=== PATIENT | female | born 1965 | race Two or more races ===

== ENCOUNTER → 2017-07-09 | Outpatient (CLI) | payer BC ==
[2017-07-09 11:36] LABS: BASO % 0.5 % (0.0-1.0); EOS # 0.1 10^3/uL (0.0-0.50); HEMATOCRIT 40.4 % (36.0-47.0); HEMOGLOBIN 13.4 g/dl (12.0-15.5); IMMATURE GRANULOCYTE % 0.2 % (0-3.0); LYMPH # 2.2 10^3/uL (1.5-4.5); LYMPH % 38.4 % (24.0-44.0); MEAN CORPUSCULAR HEMOGLOBIN 29.1 pg (27.0-33.0); MEAN CORPUSCULAR HGB CONC 33.2 g/dl (32.0-36.5); MEAN CORPUSCULAR VOLUME 87.8 fl (80.0-96.0); MONO # 0.4 10^3/uL (0.0-0.8); MONO % 7.7 % (0.0-5.0); NEUTROPHILS # 2.9 10^3/uL (1.8-7.7); NEUTROPHILS % 51.2 % (36.0-66.0); PLATELET COUNT, AUTOMATED 331 10^3/uL (150-450); RED CELL DISTRIBUTION WIDTH 12.9 % (11.5-14.5); WHITE BLOOD COUNT 5.6 10^3/uL (4.0-10.0)
[2017-07-09 12:01] LABS: TOTAL 25(OH) VITAMIN D 38.1 NG/ML (30.0-100.0)
[2017-07-09 12:15] LABS: ALBUMIN 3.9 GM/DL (3.2-5.2); ALKALINE PHOSPHATASE 111 U/L (45-117); ALT/SGPT 29 U/L (12-78); ANION GAP 7 MEQ/L (8-16); AST/SGOT 19 U/L (7-37); BILIRUBIN,TOTAL 0.5 MG/DL (0.2-1.0); BLOOD UREA NITROGEN 18 MG/DL (7-18); CALCIUM LEVEL 9.2 MG/DL (8.5-10.1); CARBON DIOXIDE LEVEL 28 MEQ/L (21-32); CHLORIDE LEVEL 107 MEQ/L (98-107); CHOLESTEROL LEVEL 196 MG/DL (<200); CREATININE FOR GFR 0.54 MG/DL (0.55-1.30); GLOMERULAR FILTRATION RATE > 60.0 (>51); GLUCOSE, FASTING 109 MG/DL (70-100); HDL CHOLESTEROL 56 MG/DL (>40); LDL CHOLESTEROL 115.6 MG/DL (<100); NON-HDL-C 140 MG/DL; POTASSIUM SERUM 4.1 MEQ/L (3.5-5.1); SODIUM LEVEL 142 MEQ/L (136-145); THYROXINE (T4) 8.3 UG/DL (4.5-12.0); TOTAL PROTEIN 7.8 GM/DL (6.4-8.2); TRIGLYCERIDES LEVEL 122 MG/DL (<150)
[2017-07-09 13:08] LABS: ESTIMATED AVERAGE GLUCOSE 148 MG/DL (60-110); HEMOGLOBIN A1c 6.8 %
== END ==
LOC: M LRY 09:48
DX: R73.9 Hyperglycemia, unspecified (principal); E03.9 Hypothyroidism, unspecified; E56.8 Deficiency of other vitamins; Z79.899 Other long term (current) drug therapy
CPT/HCPCS: 84443

== ENCOUNTER → 2017-07-21 | Outpatient (CLI) | payer BC | LOC: M LRY 11:28 | DX: M25.561 Pain in right knee (principal) ==

== ENCOUNTER → 2018-03-09 | Outpatient (CLI) | payer BC ==
--- NOTE | 2018-03-09 14:42 | REP ---
LEFT WRIST, FOUR VIEWS: HISTORY: Injury. There is a nondisplaced fracture of the distal radius. There is no dislocation. The joint spaces are normal in appearance. IMPRESSION: Nondisplaced fracture of the distal radius. Electronically Signed by Lc Brennan MD 03/09/2018 02:43 P
== END ==
LOC: M LRY 14:09
PROVIDERS: ATTEND Physician Assistant
DX: S52.502A Unspecified fracture of the lower end of left radius, initial encounter for closed fracture (principal); X58.XXXA Exposure to other specified factors, initial encounter; Y92.9 Unspecified place or not applicable; Y93.9 Activity, unspecified; Y99.9 Unspecified external cause status

== ENCOUNTER → 2018-04-11 | Outpatient (CLI) | payer BC ==
[2018-04-11 18:03] LABS: HEMATOCRIT 42.2 % (36.0-47.0); HEMOGLOBIN 13.5 g/dl (12.0-15.5); MEAN CORPUSCULAR HEMOGLOBIN 28.7 pg (27.0-33.0); MEAN CORPUSCULAR VOLUME 89.6 fl (80.0-96.0); PLATELET COUNT, AUTOMATED 325 10^3/uL (150-450); RED BLOOD COUNT 4.71 10^6/uL (4.00-5.40); WHITE BLOOD COUNT 5.8 10^3/uL (4.0-10.0)
[2018-04-11 18:04] LABS: ALBUMIN 3.8 GM/DL (3.2-5.2); ALT/SGPT 36 U/L (12-78); BILIRUBIN,TOTAL 0.3 MG/DL (0.2-1.0); BLOOD UREA NITROGEN 12 MG/DL (7-18); CALCIUM LEVEL 9.1 MG/DL (8.5-10.1); CARBON DIOXIDE LEVEL 25 MEQ/L (21-32); CHLORIDE LEVEL 106 MEQ/L (98-107); CHOLESTEROL LEVEL 195 MG/DL (<200); GLOMERULAR FILTRATION RATE > 60.0 (>51); GLUCOSE, FASTING 146 MG/DL (70-100); HDL CHOLESTEROL 60 MG/DL (>40); LDL CHOLESTEROL 106 MG/DL (<100); NON-HDL-C 135 MG/DL; POTASSIUM SERUM 4.1 MEQ/L (3.5-5.1); SODIUM LEVEL 141 MEQ/L (136-145); TOTAL PROTEIN 7.5 GM/DL (6.4-8.2); TRIGLYCERIDES LEVEL 144 MG/DL (<150)
== END ==
LOC: M LRY 10:27
PROVIDERS: ATTEND Physician Assistant Medical
DX: I10 Essential (primary) hypertension (principal); R53.83 Other fatigue; E03.9 Hypothyroidism, unspecified; E78.2 Mixed hyperlipidemia; E11.9 Type 2 diabetes mellitus without complications

== ENCOUNTER 2018-07-29 05:36 | Day surgery (SDC) | payer BC ==
[~2018-07-29] VITALS: Ht 154.9 cm; Wt 81.2 kg
[~2018-07-29 05:36] MED LIST: ASPI81CH33 PO; FLON1SPR; LEVO137T2 PO; MULTCAP PO; VITA400T15 PO
[2018-07-29] MEDS ORDERED: VASOPRESSIN INJ 20 UNITS/ML VIAL As Ordered ONE (05:59)
[2018-07-29] MEDS ORDERED: ACETAMINOPHEN *IV* 1,000 MG IV ONE ×2 (06:00)
[2018-07-29] MEDS ORDERED: LR 1,000 ML IV ONE (06:00)
[2018-07-29] MEDS ORDERED: LIDOCAINE W/EPINEPHRINE 1% 20ML VIAL As Ordered ONE (06:00)
[2018-07-29 06:34] LABS: HEMATOCRIT 43.7 % (36.0-47.0); HEMOGLOBIN 14.3 g/dl (12.0-15.5); MEAN CORPUSCULAR HEMOGLOBIN 29.9 pg (27.0-33.0); MEAN CORPUSCULAR HGB CONC 32.7 g/dl (32.0-36.5); MEAN CORPUSCULAR VOLUME 91.4 fl (80.0-96.0); PLATELET COUNT, AUTOMATED 316 10^3/uL (150-450); RED BLOOD COUNT 4.78 10^6/uL (4.00-5.40); WHITE BLOOD COUNT 6.2 10^3/uL (4.0-10.0)
[2018-07-29 06:45] LABS: BLOOD UREA NITROGEN 11 MG/DL (7-18); CALCIUM LEVEL 9.6 MG/DL (8.5-10.1); CARBON DIOXIDE LEVEL 29 MEQ/L (21-32); CHLORIDE LEVEL 106 MEQ/L (98-107); CREATININE FOR GFR 0.65 MG/DL (0.55-1.30); GLOMERULAR FILTRATION RATE > 60.0 (>51); GLUCOSE, FASTING 130 MG/DL (70-100); POTASSIUM SERUM 3.8 MEQ/L (3.5-5.1); SODIUM LEVEL 141 MEQ/L (136-145)
[2018-07-29] MEDS ORDERED: PROPOFOL 200 MG/20 ML VIAL As Ordered ONE (07:14)
[2018-07-29] MEDS ORDERED: LIDOCAINE 2% INJ 100 MG/5 ML SDV (FOR ANES.) As Ordered ONE (07:14)
[2018-07-29] MEDS ORDERED: dexameTHASONE 4 MG/ML 1ML VIAL (J1100) As Ordered ONE (07:14)
[2018-07-29] MEDS ORDERED: fentaNYL 250 MCG/5 ML INJECTION (J3010) As Ordered ONE (07:14)
[2018-07-29] MEDS ORDERED: MIDAZOLAM INJ 2 MG/2 ML VIAL (J2250) As Ordered ONE (07:14)
[2018-07-29] MEDS ORDERED: ACETAMINOPHEN 1000MG 100ML IV BTL (OFIRMEV) (J0131 PER 10MG) As Ordered ONE (07:36)
[2018-07-29] MEDS ORDERED: ePHEDrine SULFATE 25 MG/5 ML(5MG/ML) SYRINGE As Ordered ONE (07:45)
[2018-07-29] MEDS ORDERED: ESTROGENS VAGINAL CREAM 30GM As Ordered ONE (09:20)
[2018-07-29] MEDS ORDERED: fentaNYL 100 MCG/2 ML INJECTION (J3010) As Ordered ONE (10:01)
[2018-07-29] MEDS: fentaNYL 100 MCG/2 ML INJECTION (J3010) IV PRN ×4 (10:03→10:25)
[2018-07-29] MEDS ORDERED: PERCOCET 5MG/325MG TAB As Ordered ONE (10:13)
[2018-07-29] MEDS ORDERED: METOCLOPRAMIDE INJ 10MG/2ML VIAL (J2765) IV PRN (10:30)
[2018-07-29] MEDS ORDERED: LR 1,000 ML IV SCH (10:30)
[2018-07-29] MEDS ORDERED: ONDANSETRON 4MG/2ML VIAL (J2405) IV PRN (10:30)
[2018-07-29] MEDS ORDERED: PERCOCET 5MG/325MG TAB PO PRN ×2 (10:30)
[2018-07-29] MEDS ORDERED: MORPHINE 10 MG/ML 1ML VIAL (J2270) As Ordered ONE (10:33)
[2018-07-29] MEDS: MORPHINE 10 MG/ML 1ML VIAL (J2270) IV PRN ×2 (10:37→10:53)
[2018-07-29] MEDS ORDERED: IBUP80TA PO (10:49)
[2018-07-29] MEDS ORDERED: PERC5TAB12 PO (10:49)
[2018-07-29 11:45] VITALS: BP 114/68
[2018-07-29 12:12] VITALS: BP 113/66
[2018-07-29] MEDS: SIMETHICONE 80 MG CHEW TAB PO SCH ×2 (12:22→18:31)
[2018-07-29] MEDS: LR 1,000 ML IV SCH ×2 (12:23→18:15)
[2018-07-29 13:17] VITALS: BP 109/67
[2018-07-29 14:36] VITALS: BP 110/65
[2018-07-29] MEDS: IBUPROFEN 800 MG TAB PO SCH ×2 (15:11→21:38)
[2018-07-29 15:17] VITALS: BP 113/67
[2018-07-29] MEDS ORDERED: LEVOTHYROXINE 137MCG TABLET (0.137MG) PO SCH (21:00)
[2018-07-29 22:00] VITALS: BP 101/48
[2018-07-30] MEDS: SIMETHICONE 80 MG CHEW TAB PO SCH ×3 (00:11→11:44)
[2018-07-30 02:00] VITALS: BP 112/63
[2018-07-30] MEDS: IBUPROFEN 800 MG TAB PO SCH ×3 (02:51→15:12)
[2018-07-30 06:00] VITALS: BP 108/63
--- NOTE | 2018-07-30 08:22 | RO ---
DATE OF PROCEDURE: 07/29/2018 Merlyn is a 53-year-old female with symptomatic vaginal vault prolapse post hysterectomy. She has also complained of pelvic pain and pressure, urinary incontinence. After counseling in the office, a decision was made to proceed with an anterior-posterior vaginal repair, sacrospinous vault suspension, cystoscopy. PREOPERATIVE DIAGNOSES: 1. 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 2. Pelvic pain. 3. Urinary incontinence. POSTOPERATIVE DIAGNOSES: 1. 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 2. Pelvic pain. 3. Urinary incontinence. PROCEDURE: 1. Anterior-posterior vaginal repair. 2. Bilateral sacrospinous vaginal vault suspension and perineorrhaphy. ANESTHESIA: General. SURGEON: Dr. Ryan Cunningham COMPLICATIONS: None. ESTIMATED BLOOD LOSS: 200 mL. FINDING: Complete vaginal vault prolapse with significant cystocele and rectocele. DESCRIPTION OF PROCEDURE: Visiting with the patient in the holding area and reaffirming informed consent, patient was taken to the operating room where general anesthetic was found to be adequate. She was then draped and prepped usual sterile fashion in the dorsal lithotomy position. At this point, a Mensah catheter was placed in the bladder for drainage. The apex of the vagina was identified. Two Allis were placed at the apex of the vagina, then one other Allis placed approximately 2-3 cm below the urethral meatus at the bladder neck. At this point, diluted Pitressin solution was used in a midline fashion and the vaginal mucosa was infiltrated with the Pitressin solution, approximately 20 mL were used. At this point, a midline incision was made with a 5 blade, then the vaginal mucosa was then dissected up off the bladder. The bladder wall was pushed back to its anatomical position, and the cystocele was then imbricated using a #2-0 Vicryl suture. At this point the sacrospinous ligament on the right was palpated medially to feel the sacrospinous ligament. An anchor with a #2-0 Prolene suture was passed through and placed at the sacrospinous ligament. The opposite side was done in a similar fashion. These sutures were held with two hemostats for future use. At this point, the cystocele, again, a second layer of imbrication was done. The vaginal mucosa was then trimmed, and the vaginal mucosa was closed in and a figure-of-8 fashion using #2-[address] the way up to the apex of the vagina. At this point, using a Butts needle through the Prolene sutures, the suture was sutured to the apex of the vagina on both sides creating a tiago system. Two interrupted #2-0 Vicryl sutures were placed over these sutures to assist in closure of the vaginal mucosa. At this point, the tiago system was used and the apex of the vagina was brought close to the sacrospinous ligament loosely on both ends, and the vaginal mucosa was closed over these sutures. A weighted speculum was placed in the posterior fornix of the vagina to ensure that there was no Prolene suture exposed and a full-thickness vaginal mucosa closing was done. At this point, attention turned posteriorly where a rectocele was noted. Using two Allis at the orifice of the vagina, one in the perineal body, a triangular incision was made and the skin was then removed and the excess vaginal mucosa also removed. The rectal mucosa was peeled off the vaginal mucosa and imbricated, and the vaginal mucosa closed in a running fashion using #2-0 Vicryl suture. One #0 Vicryl suture was placed at the levator ani to reinforce the perineal body and the area was then closed using #2-0 Vicryl in subcuticular fashion. Good hemostasis noted. Vagina was then packed with 2 inch plain packing with Premarin cream. Instrument count correct times two. Patient tolerated procedure well. She was then transferred to recovery room in stable condition.
[2018-07-30 12:30] VITALS: BP 110/70
[2018-07-30 14:27] VITALS: BP 105/61
== END 2018-07-30 16:15 | disposition home or self-care (01) ==
LOC: M SDC 05:36 → M MS5PR 11:36 → M SDC 07-30 16:15
PROVIDERS: ATTEND Obstetrics & Gynecology
DX: N99.3 Prolapse of vaginal vault after hysterectomy (principal); R10.2 Pelvic and perineal pain; R32 Unspecified urinary incontinence; E11.9 Type 2 diabetes mellitus without complications; Z79.82 Long term (current) use of aspirin; E03.9 Hypothyroidism, unspecified; D64.9 Anemia, unspecified; Z79.899 Other long term (current) drug therapy
CPT/HCPCS: 36415; 57260; 57282; 80048; 85027; 86850; 86900; 86901; 88302; C1713; J0131; J0690; J1100; J2250; J2270; J3010

== ENCOUNTER → 2019-02-10 | Outpatient (CLI) | payer BC ==
[~2019-02-10] MED LIST changes: +IBUP80TA PO; +PERC5TAB12 PO
--- NOTE | 2019-02-13 09:36 | REP ---
MRI lumbar spine: 02/10/2019. Indication: Low back pain. Comparison: None. Technique: Short and long multiplanar TR sequences of the lumbar spine were performed without IV Gadolinium. Findings: There is minimal anterolisthesis of L4-L5 secondary to facet arthropathy. No worrisome marrow or cord signal is present. No significant paraspinal soft tissue abnormalities are present. L1/L2, L2/L3 and L3/L4: There is no focal disc herniation or significant spinal canal / neural foraminal narrowing. L4/L5: Diffuse disc uncovering/bulge and bilateral facet arthropathy are present with mild to moderate recess and neural foraminal narrowing. L5/S1: There is no focal disc herniation or significant spinal canal / neural foraminal narrowing. Impression: Degenerative sequelae of L4/L5 with mild anterolisthesis secondary to facet arthropathy. Electronically Signed by Manoj Henley DO 02/13/2019 09:26 A
== END ==
LOC: M PLARAD 15:43
PROVIDERS: ATTEND Orthopaedic Surgery
DX: M43.16 Spondylolisthesis, lumbar region (principal)

== ENCOUNTER → 2019-03-20 | Outpatient (REF) | payer BC ==
[2019-03-20 16:28] LABS: PLATELET COUNT, AUTOMATED 309 10^3/uL (150-450)
[2019-03-20 16:38] LABS: INR 1.03; PROTHROMBIN TIME 13.3 SECONDS (11.8-14.0)
[2019-03-20 16:39] LABS: PARTIAL THROMBOPLASTIN TIME 37.1 SECONDS (25.0-38.4)
== END ==
LOC: M LABDRAW1 15:59
PROVIDERS: ATTEND Physician Assistant
DX: M47.816 Spondylosis without myelopathy or radiculopathy, lumbar region (principal)

== ENCOUNTER → 2019-04-13 | Outpatient (REF) | payer BC ==
[2019-04-13 14:18] LABS: FREE T4 1.26 NG/DL (0.76-1.46); THYROID STIMULATING HORMONE 2.71 uIU/ML (0.358-3.740)
== END ==
LOC: M LABDRAW1 11:54
PROVIDERS: ATTEND Nurse Practitioner Family
DX: E06.3 Autoimmune thyroiditis (principal)

== ENCOUNTER → 2019-07-13 | Outpatient (REF) | payer BC ==
[2019-07-13 16:37] LABS: CREATININE, URINE 95.9 MG/DL; MALB URINE SIEMENS 10.9 MG/L; MAU/CREAT RATIO 11.3 MCG/MG (0.0-30.0)
== END ==
LOC: M LAB REF 15:11
PROVIDERS: ATTEND Nurse Practitioner Family
DX: E11.65 Type 2 diabetes mellitus with hyperglycemia (principal)

== ENCOUNTER → 2019-08-31 | Outpatient (CLI) | payer BC | LOC: M LABSMTC 12:34 | PROVIDERS: ATTEND Physical Medicine & Rehabilitation | DX: Z03.818 Encounter for observation for suspected exposure to other biological agents ruled out (principal); Z11.59 Encounter for screening for other viral diseases ==